=== PATIENT | female | born 1965 | race American Indian/Alaskan Native ===

== ENCOUNTER 2020-12-14 11:49 | Emergency (ER) | payer OTHER ==
[2020-12-14] MEDS ORDERED: KETOROLAC 30 MG/1 ML INJ IV ONE (12:58)
[2020-12-14] MEDS ORDERED: CLINDAMYCIN 600 MG/50 mL 600 MG/50 ML BAG IV ONE (12:58)
[2020-12-14 12:59] VITALS: BP 155/94
[2020-12-14] MEDS ORDERED: SODIUM CHLORIDE 0.9% 1000 ML 1,000 ML IV ONE (13:00)
--- NOTE | 2020-12-14 13:06 | Emergency Department Report ---
ED ENT HPI - General Chief complaint: Dental/Oral Stated complaint: FACIAL EDEMA Time Seen by Provider: 12/14/20 12:55 Source: patient Mode of arrival: Ambulatory Limitations: No Limitations - Related Data Previous Rx's Medication Instructions Recorded Last Taken Type HYDROcodone/APAP 10-325 [[place] 1 each PO Q8HR PRN #20 tablet 11/26/13 Unknown Rx 10/325] Naproxen [Naprosyn TAB] 500 mg PO BID PRN #30 tablet 11/26/13 Unknown Rx Penicillin Vk [Veetids TAB] 500 mg PO QID #30 tablet 11/26/13 Unknown Rx lisinopriL [Zestril TAB] 20 mg PO QDAY #30 tablet 11/26/13 Unknown Rx amLODIPine 5 mg PO DAILY #30 tab 06/10/14 Unknown Rx diphenhydrAMINE [Benadryl] 25 mg PO Q4HR PRN #20 capsule 06/10/14 Unknown Rx predniSONE [Deltasone] 40 mg PO QDAY #6 tab 06/10/14 Unknown Rx Allergies Allergy/AdvReac Type Severity Reaction Status Date / Time codeine Allergy Itching Verified 11/26/13 01:15 ED Dental HPI - General Chief complaint: Dental/Oral Stated complaint: FACIAL EDEMA Time Seen by Provider: 12/14/20 12:55 Source: patient Mode of arrival: Ambulatory Limitations: No Limitations - Related Data Previous Rx's Medication Instructions Recorded Last Taken Type HYDROcodone/APAP 10-325 [[place] 1 each PO Q8HR PRN #20 tablet 11/26/13 Unknown Rx 10/325] Naproxen [Naprosyn TAB] 500 mg PO BID PRN #30 tablet 11/26/13 Unknown Rx Penicillin Vk [Veetids TAB] 500 mg PO QID #30 tablet 11/26/13 Unknown Rx lisinopriL [Zestril TAB] 20 mg PO QDAY #30 tablet 11/26/13 Unknown Rx amLODIPine 5 mg PO DAILY #30 tab 06/10/14 Unknown Rx diphenhydrAMINE [Benadryl] 25 mg PO Q4HR PRN #20 capsule 06/10/14 Unknown Rx predniSONE [Deltasone] 40 mg PO QDAY #6 tab 06/10/14 Unknown Rx Allergies Allergy/AdvReac Type Severity Reaction Status Date / Time codeine Allergy Itching Verified 11/26/13 01:15 ED Review of Systems ROS: Stated complaint: FACIAL EDEMA Other details as noted in HPI ED Past Medical Hx - Past Medical History Previous Medical History?: Yes Hx Hypertension: Yes (during ) - Surgical History Past Surgical History?: Yes Additional Surgical History: CS - Social History Smoking Status: Never Smoker Substance Use Type: None - Medications Home Medications: Home Medications Medication Instructions Recorded Confirmed Last Taken Type HYDROcodone/APAP 10-325 [[place] 1 each PO Q8HR PRN #20 tablet 11/26/13 Unknown Rx 10/325] Naproxen [Naprosyn TAB] 500 mg PO BID PRN #30 tablet 11/26/13 Unknown Rx Penicillin Vk [Veetids TAB] 500 mg PO QID #30 tablet 11/26/13 Unknown Rx lisinopriL [Zestril TAB] 20 mg PO QDAY #30 tablet 11/26/13 Unknown Rx amLODIPine 5 mg PO DAILY #30 tab 06/10/14 Unknown Rx diphenhydrAMINE [Benadryl] 25 mg PO Q4HR PRN #20 capsule 06/10/14 Unknown Rx predniSONE [Deltasone] 40 mg PO QDAY #6 tab 06/10/14 Unknown Rx ED Physical Exam - General Limitations: No Limitations Critical care attestation.: If time is entered above; I have spent that time in minutes in the direct care of this critically ill patient, excluding procedure time. ED Disposition Condition: Stable
--- NOTE | 2020-12-14 13:07 | Event Note ---
ED Screening Note Date of service: 12/14/20 Time: 13:06 ED Screening Note: 55-year-old -[place] female presents to the emergency room with a 4-day history of left side dental pain and swelling that is progressively getting worse. Patient states she did make an attempt to go to the dentist and they told her that her blood pressure was elevated I did place her on clindamycin 300 mg twice a day. Patient states that the pain and the swelling has not improved. Patient comes in to be evaluated. She does report a allergy to penicillin but states she is able to take amoxicillin. She does have a allergy to codeine. Patient states she has not been able to eat secondary to pain. She has been taking ibuprofen 800 mg without much relief. This initial assessment/diagnostic orders/clinical plan/treatment(s) is/are subject to change based on patients health status, clinical progression and re- assessment by fellow clinical providers in the ED. Further treatment and workup at subsequent clinical providers discretion. Patient/guardian urged not to elope from the ED as their condition may be serious if not clinically assessed and managed. Initial orders include: INT, clindamycin 600 mg IV, Toradol 15 mg IV. Discussed case with JERSEY Eastman she will continue managing patient.
--- NOTE | 2020-12-14 14:41 | Emergency Department Report ---
ED ENT HPI - General Chief complaint: Dental/Oral Stated complaint: FACIAL EDEMA Time Seen by Provider: 12/14/20 12:55 Source: patient Mode of arrival: Ambulatory Limitations: No Limitations - History of Present Illness Initial comments: 55-year-old -[place] female presents to the emergency room with a 4-day history of left side dental pain and swelling that is progressively getting worse. Patient states she did make an attempt to go to the dentist and they told her that her blood pressure was elevated and placed her on clindamycin 300 mg twice a day. Patient states that the pain and the swelling has not improved. Patient comes in to be evaluated. She does report a allergy to penicillin but states she is able to take amoxicillin. She does have a allergy to codeine. Patient states she has not been able to eat secondary to pain. She has been taking ibuprofen 800 mg without much relief. MD complaint: tooth pain - Related Data Previous Rx's Medication Instructions Recorded Last Taken Type HYDROcodone/APAP 10-325 [[place] 1 each PO Q8HR PRN #20 tablet 11/26/13 Unknown Rx 10/325] Penicillin Vk [Veetids TAB] 500 mg PO QID #30 tablet 11/26/13 Unknown Rx lisinopriL [Zestril TAB] 20 mg PO QDAY #30 tablet 11/26/13 Unknown Rx amLODIPine 5 mg PO DAILY #30 tab 06/10/14 Unknown Rx diphenhydrAMINE [Benadryl] 25 mg PO Q4HR PRN #20 capsule 06/10/14 Unknown Rx predniSONE [Deltasone] 40 mg PO QDAY #6 tab 06/10/14 Unknown Rx Clindamycin [Clindamycin CAP] 300 mg PO Q8H #21 cap 12/14/20 Unknown Rx Naproxen [Naprosyn TAB] 500 mg PO BID PRN #30 tablet 12/14/20 Unknown Rx Allergies Allergy/AdvReac Type Severity Reaction Status Date / Time codeine Allergy Itching Verified 11/26/13 01:15 ED Dental HPI - General Chief complaint: Dental/Oral Stated complaint: FACIAL EDEMA Time Seen by Provider: 12/14/20 12:55 Source: patient Mode of arrival: Ambulatory Limitations: No Limitations - Related Data Previous Rx's Medication Instructions Recorded Last Taken Type HYDROcodone/APAP 10-325 [[place] 1 each PO Q8HR PRN #20 tablet 11/26/13 Unknown Rx 10/325] Penicillin Vk [Veetids TAB] 500 mg PO QID #30 tablet 11/26/13 Unknown Rx lisinopriL [Zestril TAB] 20 mg PO QDAY #30 tablet 11/26/13 Unknown Rx amLODIPine 5 mg PO DAILY #30 tab 06/10/14 Unknown Rx diphenhydrAMINE [Benadryl] 25 mg PO Q4HR PRN #20 capsule 06/10/14 Unknown Rx predniSONE [Deltasone] 40 mg PO QDAY #6 tab 06/10/14 Unknown Rx Clindamycin [Clindamycin CAP] 300 mg PO Q8H #21 cap 12/14/20 Unknown Rx Naproxen [Naprosyn TAB] 500 mg PO BID PRN #30 tablet 12/14/20 Unknown Rx Allergies Allergy/AdvReac Type Severity Reaction Status Date / Time codeine Allergy Itching Verified 11/26/13 01:15 ED Review of Systems ROS: Stated complaint: FACIAL EDEMA Other details as noted in HPI Comment: All other systems reviewed and negative ED Past Medical Hx - Past Medical History Previous Medical History?: Yes Hx Hypertension: Yes (during ) - Surgical History Past Surgical History?: Yes Additional Surgical History: CS - Social History Smoking Status: Never Smoker Substance Use Type: None - Medications Home Medications: Home Medications Medication Instructions Recorded Confirmed Last Taken Type HYDROcodone/APAP 10-325 [[place] 1 each PO Q8HR PRN #20 tablet 11/26/13 Unknown Rx 10/325] Penicillin Vk [Veetids TAB] 500 mg PO QID #30 tablet 11/26/13 Unknown Rx lisinopriL [Zestril TAB] 20 mg PO QDAY #30 tablet 11/26/13 Unknown Rx amLODIPine 5 mg PO DAILY #30 tab 06/10/14 Unknown Rx diphenhydrAMINE [Benadryl] 25 mg PO Q4HR PRN #20 capsule 06/10/14 Unknown Rx predniSONE [Deltasone] 40 mg PO QDAY #6 tab 06/10/14 Unknown Rx Clindamycin [Clindamycin CAP] 300 mg PO Q8H #21 cap 12/14/20 Unknown Rx Naproxen [Naprosyn TAB] 500 mg PO BID PRN #30 tablet 12/14/20 Unknown Rx ED Physical Exam - General Limitations: No Limitations General appearance: alert, in no apparent distress - Head Head exam: Present: atraumatic, normocephalic - Eye Eye exam: Present: normal appearance - ENT ENT exam: Present: mucous membranes moist, TM's normal bilaterally - Expanded ENT Exam Expanded Mouth exam: Present: normal external inspection Teeth exam: Present: dental caries (Left-sided upper and lower first molar), dental tenderness #, gingival enlargement (14 and 19), other Throat exam: Positive: normal inspection. Negative: tonsillar exudate - Neck Neck exam: Present: normal inspection - Respiratory Respiratory exam: Present: normal lung sounds bilaterally. Absent: respiratory distress - Cardiovascular Cardiovascular Exam: Present: regular rate, normal rhythm. Absent: systolic murmur, diastolic murmur, rubs, gallop - GI/Abdominal GI/Abdominal exam: Present: soft, normal bowel sounds - Extremities Exam Extremities exam: Present: normal inspection - Back Exam Back exam: Present: normal inspection - Neurological Exam Neurological exam: Present: alert, oriented X3 - Psychiatric Psychiatric exam: Present: normal affect, normal mood - Skin Skin exam: Present: warm, dry, intact, normal color. Absent: rash ED Course Vital Signs 12/14/20 12:02 Temperature 99.0 F Pulse Rate 78 Respiratory 13 Rate Blood Pressure 155/94 O2 Sat by Pulse 99 Oximetry - Reevaluation(s) Reevaluation #1: Upon reevaluation patient reports feeling much better after administration of IV fluids, clindamycin Toradol for pain. Patient stable is in no acute distress will be discharged 12/14/20 15:22 ED Medical Decision Making - Medical Decision Making 55-year-old female who presents with left-sided Facial pain and swelling secondary to odontogenic caries ED course: Patient received IV fluids, clindamycin and Toradol Odontogenic infection versus ear infection. Based upon history and physical examination, pain is a result of an infection of tooth number 14 in 19 and that the pain Pt feels on the right side of his face and towards the ear is referred pain from this infectious process. Pt has no evidence of acute impending airway compromise. At this point, patient will be discharged home on some antibiotics and pain trial, she will do well with an outpatient course of antibiotics. Patient is to follow up with the Dental Clinic as discussed Vital signs are normal patient is in no acute distress. Pt had an effect uneventful ED stay Critical care attestation.: If time is entered above; I have spent that time in minutes in the direct care of this critically ill patient, excluding procedure time. ED Disposition Clinical Impression: Dental caries, Dental abscess Disposition: TO HOME OR SELFCARE Is pt being admited?: No Does the pt Need Aspirin: No Condition: Stable Instructions: Dental Abscess, [id number], Dental Extraction, [id number] Additional Instructions: Make sure to follow up with the primary care physician as discussed. Take all your medications as you've been prescribed. If you have any worsening symptoms or develop new symptoms please return to ED immediately. Prescriptions: Clindamycin [Clindamycin CAP] 300 mg PO Q8H #21 cap Naproxen [Naprosyn TAB] 500 mg PO BID PRN #30 tablet PRN Reason: Pain Referrals: [facility] [Outside] - 3-5 Days [facility] [Outside] - 3-5 Days Forms: Work/School Release Form(ED) Time of Disposition: 15:22
== END 2020-12-14 15:50 | disposition home or self-care (01) ==
LOC: ED 11:49
DX: K04.7 Periapical abscess without sinus (principal); K02.9 Dental caries, unspecified; I10 Essential (primary) hypertension; Z98.890 Other specified postprocedural states; Z79.899 Other long term (current) drug therapy; Z88.8 Allergy status to other drugs, medicaments and biological substances
CPT/HCPCS: 96365; 96375; 99282; J1885; J7030